=== PATIENT | female | born 1990 | race African-American/Black ===

== ENCOUNTER 2017-09-14 19:22 | Emergency (ER) | payer SELFPAY ==
[2017-09-14] MEDS ORDERED: Ketorolac Tromethamine 60 MG/2 ML VIAL ONE (19:34)
[2017-09-14] MEDS ORDERED: Promethazine HCl 25 MG/ML VIAL ONE (19:34)
[2017-09-14 19:45] LABS: Pregnancy Test - Urine (BHCG) Negative (Negative)
[2017-09-14 19:46] LABS: Pregu Control Background? CLEAR/WHITE (CLR/WHITE); Pregu Control Bar Appear? YES (CONTROL BAR); Specific Gravity 1.017 (1.002-1.036)
[2017-09-14] MEDS ORDERED: diphenhydrAMINE 50 MG/ML VIAL ONE (20:17)
== END 2017-09-14 20:58 | disposition home or self-care (01) ==
LOC: NAV ERS 19:22
DX: R51 Headache (principal); I10 Essential (primary) hypertension
CPT/HCPCS: 81025; 96372; J1200; J1885; J2550

== ENCOUNTER 2018-04-22 08:42 | Emergency (ER) | payer OTHER, SELFPAY ==
[2018-04-22] MEDS ORDERED: Sodium Chloride 0.9% 1,000 ML BAG ONE (09:00)
[2018-04-22] MEDS ORDERED: Promethazine HCl 25 MG/ML VIAL ONE (09:07)
[2018-04-22] MEDS ORDERED: diphenhydrAMINE 50 MG/ML VIAL ONE (09:07)
[2018-04-22] MEDS ORDERED: Ketorolac Tromethamine 30 MG/ML VIAL ONE (09:07)
== END 2018-04-22 10:41 | disposition home or self-care (01) ==
LOC: NAV ERS 08:42
DX: G43.909 Migraine, unspecified, not intractable, without status migrainosus (principal); I10 Essential (primary) hypertension; Z79.899 Other long term (current) drug therapy
CPT/HCPCS: 96361; 96374; 96375; J1200; J1885; J2550; J7050

== ENCOUNTER 2018-06-19 22:17 | Emergency (ER) | payer OTHER ==
[2018-06-19] MEDS ORDERED: Oxymetazoline HCl 0.05% ( 15 ML ) ONE (22:38)
== END 2018-06-19 22:55 | disposition home or self-care (01) ==
LOC: NAV ERS 22:17
DX: J06.9 Acute upper respiratory infection, unspecified (principal); H10.9 Unspecified conjunctivitis; I10 Essential (primary) hypertension; Z79.899 Other long term (current) drug therapy
CPT/HCPCS: 87081; 87430; 99283

== ENCOUNTER 2018-07-11 10:23 | Emergency (ER) | payer OTHER ==
[2018-07-11 11:00] LABS: Bilirubin Negative (Negative); Blood, Urine Large (Negative); Clarity Clear (Clear); Glucose, Urine (Dipstick) Negative (Negative); Leukocyte Trace (Negative); Nitrite Negative (Negative); Protein, Urine (Dipstick) Negative (Neg-Trace); Specific Gravity, Urine 1.015 (1.005-1.030); pH, Urine 7.5 (5.0-9.0)
[2018-07-11 11:06] LABS: Pregnancy Test - Urine (BHCG) Negative (Negative); Pregu Control Background? CLEAR/WHITE (CLR/WHITE); Pregu Control Bar Appear? YES (CONTROL BAR); Specific Gravity 1.015 (1.002-1.036)
[2018-07-11 11:15] LABS: Bacteria/HPF Rare-Few HPF (None Seen); RBC/HPF 0-3 HPF (0-3); Squamous Epithelial 0-3 HPF (0-3)
== END 2018-07-11 11:30 | disposition home or self-care (01) ==
LOC: NAV ERS 10:23
DX: N94.6 Dysmenorrhea, unspecified (principal); I10 Essential (primary) hypertension; G43.909 Migraine, unspecified, not intractable, without status migrainosus; Z79.899 Other long term (current) drug therapy
CPT/HCPCS: 81003; 81015; 81025; 99284

== ENCOUNTER 2018-08-09 19:19 | Emergency (ER) | payer OTHER ==
[2018-08-09 20:26] LABS: Anion Gap 11 mmol/L (10-20); BUN (Urea Nitrogen) 10 mg/dL (7.0-18.7); Calc. Creatinine Clearance 0 mL/min (70-130); Calcium 8.6 mg/dL (7.8-10.44); Carbon Dioxide 25 mmol/L (22-29); Chloride 107 mmol/L (98-107); Estimated GFR-MDRD Greater than 90; Glucose 89 mg/dL (70-105); Potassium 3.8 mmol/L (3.5-5.1); Sodium 139 mmol/L (136-145)
== END 2018-08-09 20:35 | disposition home or self-care (01) ==
LOC: NAV ERS 19:19
DX: R60.0 Localized edema (principal); I10 Essential (primary) hypertension; G43.909 Migraine, unspecified, not intractable, without status migrainosus; Z79.899 Other long term (current) drug therapy
CPT/HCPCS: 80048; 83880; 99283

== ENCOUNTER 2019-04-23 17:47 | Emergency (ER) | payer OTHER | END 2019-04-23 18:07 | disposition home or self-care (01) | LOC: NAV ERS 17:47 | DX: K08.89 Other specified disorders of teeth and supporting structures (principal); I10 Essential (primary) hypertension; Z79.899 Other long term (current) drug therapy | CPT/HCPCS: 99282 ==

== ENCOUNTER 2020-09-14 20:32 | Emergency (ER) | payer OTHER, SELFPAY ==
[2020-09-15 17:09] LABS: SARS-CoV-2 MS2 Positive; SARS-CoV-2 N Gene Negative; SARS-CoV-2 S Gene Negative; SARS-CoV-2 by NAA Not Detected (NotDetected); SARS-CoV-2 orf1ab Negative
== END 2020-09-14 21:32 | disposition home or self-care (01) ==
LOC: NAV ERS 20:32
DX: B34.9 Viral infection, unspecified (principal); I10 Essential (primary) hypertension; Z20.828 Contact with and (suspected) exposure to other viral communicable diseases; Z79.899 Other long term (current) drug therapy
CPT/HCPCS: 87635; 99283; U0003